=== PATIENT | female | born 1935 | race Hispanic/Latino ===

== ENCOUNTER 2019-01-06 12:58 | Observation (INO) | payer MEDICARE, MEDICAID ==
[2019-01-06 16:11] LABS: BASO % 0.4 % (0.0-2.0); EOS % 1.4 % (0.0-4.0); HEMOGLOBIN 12.7 g/dL (11.0-16.0); LYMPH # 1.2 K/uL (1.0-4.3); LYMPH % 33.8 % (20.0-40.0); MEAN CELL VOLUME 80.1 fL (81.0-99.0); MEAN CORPUSCULAR HEMOGLOBIN 25.9 pg (27.0-31.0); MEAN CORPUSCULAR HGB CONC 32.3 g/dL (33.0-37.0); MEAN PLATELET VOLUME 10.4 fL (7.2-11.7); MONO # 0.4 K/uL (0.0-0.8); MONO % 11.6 % (0.0-10.0); NEUT # 1.8 K/uL (1.8-7.0); NEUT % 52.8 % (50.0-75.0); NRBC % 0.1 % (0.0-2.0); RBC 4.92 Mil/uL (3.80-5.20); RED CELL DISTRIBUTION WIDTH 15.6 % (11.5-14.5); WHITE BLOOD COUNT 3.5 K/uL (4.8-10.8)
--- NOTE | 2019-01-06 16:12 | RAD ---
Date of service: 01/06/2019 HISTORY: Cough COMPARISON: No prior. FINDINGS: LUNGS: The lungs are well inflated. The right lung is clear. There is confluent airspace disease in the left perihilar region and linear atelectasis/scarring in both lower lobes. PLEURA: No pleural effusions or pneumothorax. CARDIOVASCULAR: Mild cardiomegaly. No aortic atherosclerotic calcifications present. OSSEOUS STRUCTURES: Within normal limits for the patient's age. VISUALIZED UPPER ABDOMEN: Normal. OTHER FINDINGS: None. IMPRESSION: Confluent airspace disease in the left perihilar region which may represent pneumonia. Follow-up after medical management is recommended to ensure complete resolution.
[2019-01-06 16:15] LABS: INR 1.1; PROTHROMBIN TIME 11.9 SECONDS (9.7-12.2)
--- NOTE | 2019-01-06 16:18 | C.PDOC ---
History Of Present Illness 83 year old female presents to the ED with family at bedside for evaluation of cold symptoms for one week. Family reports patient has congestion, fever, dry cough and runny nose. They also note that patient started having blood tinged sputum when coughing several days ago. Report patient is on Aspirin and deny any other blood thinners. Patient reports sometimes she feels it is difficult to catch breath but denies chest pain or any other physical complaints. Time Seen by Provider: 01/06/19 14:04 Chief Complaint (Nursing): Cough, Cold, Congestion History Per: Patient History/Exam Limitations: no limitations Onset/Duration Of Symptoms: Days Current Symptoms Are (Timing): Still Present Sick Contacts (Context): None Associated Symptoms: Fever, Cough, Sinus Drainage, Nasal Congestion. denies: Nausea, Vomiting, Diarrhea Past Medical History Reviewed: Historical Data, Nursing Documentation, Vital Signs Vital Signs: Last Vital Signs Temp 100.6 F H 01/06/19 15:20 Pulse 67 01/06/19 15:20 Resp 18 01/06/19 15:20 BP 157/67 H 01/06/19 15:20 Pulse Ox 100 01/06/19 15:20 - Medical History PMH: Arthritis, Cardia Arrhythmia, HTN Other Surgeries: Hx of surgeries Family History: States: No Known Family Hx - Social History Hx Alcohol Use: No Hx Substance Use: No - Immunization History Hx Influenza Vaccination: No Review Of Systems Constitutional: Positive for: Fever ENT: Positive for: Nose Discharge, Nose Congestion Cardiovascular: Negative for: Chest Pain Respiratory: Positive for: Cough, Shortness of Breath, Sputum (blood tinged ) Gastrointestinal: Negative for: Nausea, Vomiting, Abdominal Pain, Diarrhea Neurological: Negative for: Weakness, Numbness, Headache Physical Exam - Physical Exam Appears: Non-toxic, No Acute Distress Skin: Warm, Dry, No Rash Head: Normacephalic Eye(s): bilateral: Normal Inspection Nose: Normal Oral Mucosa: Moist Neck: Supple Chest: Symmetrical Cardiovascular: Rhythm Regular Respiratory: No Rales, No Rhonchi, Wheezing (high pitched expiratory wheezing scattered throughout lungs ) Gastrointestinal/Abdominal: Soft, No Tenderness Extremity: No Pedal Edema Extremity: Bilateral: Atraumatic Neurological/Psych: Oriented x3, Normal Speech ED Course And Treatment - Laboratory Results Result Diagrams: 01/08/19 08:18 01/08/19 08:18 Lab Results: PT 11.9 SECONDS (9.7-12.2) 01/06/19 16:01 INR 1.1 01/06/19 16:01 APTT 36.0 SECONDS (21-34) H 01/06/19 16:01 O2 Sat by Pulse Oximetry: 100 (RA) Pulse Ox Interpretation: Normal - Other Rad CXR X-Ray: Viewed By Me, Read By Radiologist Interpretation: Accession No. : [id number]. Patient Name / ID : ANTHONY GUSMAN / [id number]. Exam Date : 01/06/2019 16:03:28 ( Approved ). Study Comment : Sex / Age : F / [id number]. Creator : Doris Del Castillo MD. Dictator : Doris Del Castillo MD. Amusement Machine Mechanic : Powder Coat Painter : Doris Del Castillo MD. Approver2 : Report Date : 01/06/2019 16:09:19. My Comment : . Date of service: 01/06/2019. HISTORY: Cough. COMPARISON: No prior. FINDINGS: LUNGS: The lungs are well inflated. The right lung is clear. There is confluent airspace disease in the left perihilar region and linear atelectasis/scarring in both lower lobes. PLEURA: No pleural effusions or pneumothorax. CARDIOVASCULAR: Mild cardiomegaly. No aortic atherosclerotic calcifications present. OSSEOUS STRUCTURES: Within normal limits for the patient's age. VISUALIZED UPPER ABDOMEN: Normal. OTHER FINDINGS: None. IMPRESSION: Confluent airspace disease in the left perihilar region which may represent pneumonia. Follow-up after medical management is recommended to ensure complete resolution. Medical Decision Making Medical Decision Making: Plan - EKG - Bloodwork - CXR EKG results 13:40 NSR, 72 bpm, Normal axis, normal intervals, occasional PACs, no ST elevations Results reviewed and discussed with patient and niece. Will admit for likely pneumonia. Rocephin and zithromax ivpb ordered. Blood cultures collected prior to abx administration. Case discussed with Dr. Weston, environmental engineering technician for medicine service, accepts patient for admission. Disposition - Disposition Disposition: HOSPITALIZED Disposition Time: 17:00 Condition: STABLE - Clinical Impression Clinical Impression: Pneumonia, Hemoptysis - Scribe Statement The provider has reviewed the documentation as recorded by the Scribe Nataliya Mckeon All medical record entries made by the Scribe were at my direction and pers onally dictated by me. I have reviewed the chart and agree that the record accurately reflects my personal performance of the history, physical exam, medical decision making, and the department course for this patient. I have also personally directed, reviewed, and agree with the discharge instructions and disposition.
[2019-01-06 16:36] LABS: ALB/GLOB RATIO 1.3 (1.0-2.1); ALBUMIN 3.9 g/dL (3.5-5.0); ALT/SGPT 19 U/L (9-52); AST/SGOT 34 U/L (14-36); BLOOD UREA NITROGEN 22 mg/dL (7-17); CALCIUM 8.8 mg/dl (8.6-10.4); GFR NON-AFRICAN AMERICAN 53
[2019-01-06 17:24] LABS: ABG ALLEN TEST POS; ARTERIAL BLOOD GAS HCO3 25.6 mmol/L (21-28); ARTERIAL BLOOD GAS O2 SAT 94.4 % (95-98); ARTERIAL BLOOD GAS PCO2 37 mm/Hg (35-45); ARTERIAL BLOOD GAS PH 7.44 (7.35-7.45); ARTERIAL BLOOD GAS PO2 59 mm/Hg (80-100); ARTERIAL BLOOD GAS TCO2 26.2 mmol/L (22-28)
--- NOTE | 2019-01-06 19:14 | CP.PCM.CON ---
History of Present Illness - History of Present Illness History of Present Illness: 83 year old female with a PMH of DM type 2, Pulmonary hypertension, arthitis, HTN, and cardia arrhythmia who presented for cold-like symptoms for 1 wk duration. Family reported patient had SOB, congestion, fever, productive cough associated with blood tinged sputum, and running nose. She admits to being recently sick. She denied dysurea, constipation, vomiting, and nausea. ROS: As per HPI PMH: DM type 2, Pulmonary hypertension, arthitis, HTN, and cardia arrhythmia PSH: Abd hernia repair, coronary stent Family: Mother at 88 from pancreatic CA. Social: denies alcohol, illicit drug, and smoking usage. Lives with her . Has a home health aid. CXR 01/06: confluent airspace disease in left perihilar region which my represent pna. A: 83 year old female with a PMH of DM type 2, Pulmonary hypertension, arthitis, HTN, and cardia arrhythmia who presented for cold-like symptoms for 1 wk duration. Patient is being treated for L. PNA. Patient wbc are low, no prior records for comparison. P: continue doneb, pulmicort, solumedrol continue antibiotics; Azithromycin IV and ceftriaxone IV no inhaled steroids F/U blood cultures f/u sputum sample for culture and cytology repeat CBC Past Patient History - Infectious Disease Hx of Infectious Diseases: None - Past Social History Smoking Status: Never Smoked - CARDIAC Hx Cardia Arrhythmia: Yes Hx Hypertension: Yes - PULMONARY Other/Comment: Hx of pulmonary hypertension - ENDOCRINE/METABOLIC Hx Diabetes Mellitus Type 2: Yes - MUSCULOSKELETAL/RHEUMATOLOGICAL Hx Arthritis: Yes - PSYCHIATRIC Hx Substance Use: No - SURGICAL HISTORY Hx Surgeries: Yes Hx Herniorrhaphy: Yes Other/Comment: Hernia repair - ANESTHESIA Hx Anesthesia: Yes Hx Anesthesia Reactions: No Hx Malignant Hyperthermia: No Meds Allergies/Adverse Reactions: Allergies Allergy/AdvReac Type Severity Reaction Status Date / Time No Known Allergies Allergy Verified 01/06/19 13:27 Results - Vital Signs Recent Vital Signs: Last Vital Signs Temp 99.1 F 01/06/19 18:30 Pulse 76 01/06/19 18:30 Resp 20 01/06/19 18:30 BP 168/74 H 01/06/19 18:30 Pulse Ox 94 L 01/06/19 18:30 - Labs Result Diagrams: 01/07/19 06:56 01/07/19 06:56 Labs: Laboratory Results - last 24 hr 01/06/19 01/06/19 01/06/19 16:01 16:01 16:01 WBC 3.5 L RBC 4.92 Hgb 12.7 Hct 39.4 MCV 80.1 L MCH 25.9 L MCHC 32.3 L RDW 15.6 H Plt Count 130 MPV 10.4 Neut % (Auto) 52.8 Lymph % (Auto) 33.8 Cabell % (Auto) 11.6 H Eos % (Auto) 1.4 Baso % (Auto) 0.4 Neut # (Auto) 1.8 Lymph # (Auto) 1.2 Cabell # (Auto) 0.4 Eos # (Auto) 0.0 Baso # (Auto) 0.0 PT 11.9 INR 1.1 APTT 36.0 H Puncture Site pCO2 pO2 HCO3 ABG pH ABG Total CO2 ABG O2 Saturation ABG Base Excess Clemente Test ABG Potassium A-a O2 Difference Respiratory Index Glucose Lactate Liter Flow FiO2 Sodium 131 L Potassium 4.5 Chloride 99 Carbon Dioxide 28 Anion Gap 9 L BUN 22 H Creatinine 1.0 Est GFR ( Amer) > 60 Est GFR (Non-Af Amer) 53 Random Glucose 93 Calcium 8.8 Total Bilirubin 0.3 AST 34 ALT 19 Alkaline Phosphatase 76 Total Protein 6.9 Albumin 3.9 Globulin 3.0 Albumin/Globulin Ratio 1.3 Arterial Blood Potassium 01/06/19 17:20 WBC RBC Hgb Hct MCV MCH MCHC RDW Plt Count MPV Neut % (Auto) Lymph % (Auto) Cabell % (Auto) Eos % (Auto) Baso % (Auto) Neut # (Auto) Lymph # (Auto) Cabell # (Auto) Eos # (Auto) Baso # (Auto) PT INR APTT Puncture Site Rra pCO2 37 pO2 59 L HCO3 25.6 ABG pH 7.44 ABG Total CO2 26.2 ABG O2 Saturation 94.4 L ABG Base Excess 1.1 Clemente Test Pos ABG Potassium 3.8 A-a O2 Difference 94.0 Respiratory Index 1.6 Glucose 100 Lactate 0.6 L Liter Flow 2.0 FiO2 28.0 Sodium 137.0 Potassium Chloride 105.0 Carbon Dioxide Anion Gap BUN Creatinine Est GFR ( Amer) Est GFR (Non-Af Amer) Random Glucose Calcium Total Bilirubin AST ALT Alkaline Phosphatase Total Protein Albumin Globulin Albumin/Globulin Ratio Arterial Blood Potassium 3.8
[2019-01-06] MEDS: MethylPREDNISolone 40 mg Vial IVP SCH (20:29)
[2019-01-06] MEDS: cefTRIAXone IV 1 gm in Dextros 50 ML IVPB SCH (21:05)
[2019-01-06] MEDS: Azithromycin 500mg/250ML NS 500 MG/250 ML BAG IVPB SCH (21:59)
[2019-01-06] MEDS ORDERED: Azithromycin 500mg/250ML NS 500 MG/250 ML BAG IVPB SCH (22:00)
[2019-01-07] MEDS: Albuterol-Ipratrop 3 mg / 0.5 (3 ml) UD INH SCH ×5 (01:45→20:21)
[2019-01-07] MEDS: MethylPREDNISolone 40 mg Vial IVP SCH ×3 (03:18→18:58)
[2019-01-07 07:24] LABS: BASO % 0.4 % (0.0-2.0); EOS % 0.1 % (0.0-4.0); HEMOGLOBIN 13.6 g/dL (11.0-16.0); LYMPH # 0.8 K/uL (1.0-4.3); LYMPH % 30.4 % (20.0-40.0); MEAN CELL VOLUME 80.5 fL (81.0-99.0); MEAN CORPUSCULAR HEMOGLOBIN 26.4 pg (27.0-31.0); MEAN CORPUSCULAR HGB CONC 32.8 g/dL (33.0-37.0); MEAN PLATELET VOLUME 10.7 fL (7.2-11.7); MONO # 0.1 K/uL (0.0-0.8); MONO % 2.7 % (0.0-10.0); NEUT # 1.9 K/uL (1.8-7.0); NEUT % 66.4 % (50.0-75.0); NRBC % 0.1 % (0.0-2.0); RBC 5.14 Mil/uL (3.80-5.20); RED CELL DISTRIBUTION WIDTH 15.3 % (11.5-14.5); WHITE BLOOD COUNT 2.8 K/uL (4.8-10.8)
[2019-01-07] MEDS: Budesonide 0.25 mg/2 ml Inhal Susp UD INH SCH ×2 (07:53→20:22)
[2019-01-07 07:54] LABS: ALB/GLOB RATIO 1.3 (1.0-2.1); ALBUMIN 4.1 g/dL (3.5-5.0); ALT/SGPT 21 U/L (9-52); AST/SGOT 37 U/L (14-36); BLOOD UREA NITROGEN 23 mg/dL (7-17); CALCIUM 8.4 mg/dl (8.6-10.4); GFR NON-AFRICAN AMERICAN > 60
[2019-01-07] MEDS: cefTRIAXone IV 1 gm in Dextros 50 ML IVPB SCH (09:12)
[2019-01-07] MEDS: Metoprolol Succinate 25 mg XL Tab PO SCH (09:12)
[2019-01-07] MEDS: Pantoprazole 20 mg EC Tab PO SCH (09:12)
--- NOTE | 2019-01-07 10:20 | CT ---
Date of service: 01/06/2019 PROCEDURE: CT Chest without contrast HISTORY: Blood in sputum COMPARISON: Chest radiograph performed 01/06/2019. TECHNIQUE: Contiguous axial images were obtained through the chest without intravenous contrast enhancement. Sagittal and coronal reconstructions were performed. Radiation dose: Total exam DLP = 587.39 mGy-cm. This CT exam was performed using one or more of the following dose reduction techniques: Automated exposure control, adjustment of the mA and/or kV according to patient size, and/or use of iterative reconstruction technique. FINDINGS: LUNGS: The lungs are well inflated. There is confluent multifocal airspace disease in the left upper lobe and lingula. There is patchy ground-glass attenuation in the posterior basal segment of the right lower lobe. There is multifocal linear atelectasis in the lung. There is mild scattered centrilobular emphysema in the lungs. MEDIASTINUM: There are coarse calcifications in the coronary arteries. No aortic aneurysm. Normal sized heart. Main pulmonary artery unremarkable. No vascular congestion. There are enlarged mediastinal lymph nodes. Evaluation of hilar lymphadenopathy is not possible in the absence of intravenous contrast There are aortic atherosclerotic calcification. PLEURA: No pleural fluid. No pneumothorax. BONES: No fracture. No destructive lesion. Advanced multilevel degenerative disc disease. UPPER ABDOMEN: Mild thickening of the adrenal glands. No discrete nodule. There is a simple cyst in the upper pole of the left kidney. OTHER FINDINGS: There is a small sliding hiatal hernia. IMPRESSION: 1. Findings are compatible with multifocal pneumonia in the left upper lobe and lingula. Follow-up after medical management is recommended to ensure complete resolution. 2. Patchy ground-glass attenuation in the posterior basal segment of the right lower lobe nonspecific and could represent nonspecific infectious/inflammation. Follow-up after medical management is recommended to ensure complete resolution. 3. Enlarged mediastinal lymph nodes Mage may be reactive, infectious or inflammatory in etiology.
--- NOTE | 2019-01-07 18:05 | CP.PCM.PN ---
Subjective - Date & Time of Evaluation Date of Evaluation: 01/07/19 Time of Evaluation: 11:00 - Subjective Subjective: Patient seen and examined. Still complaining of cough with blood-tinged sputum CAT scan of the chest noted Afebrile Lying comfortably in no distress Objective - Vital Signs/Intake and Output Vital Signs (last 24 hours): Temp Pulse Resp BP Pulse Ox 98.5 F 81 20 139/71 95 01/07/19 16:50 01/07/19 16:50 01/07/19 16:50 01/07/19 16:50 01/07/19 16:50 - Medications Medications: Current Medications Acetaminophen (Tylenol 325mg Tab) 650 mg PO Q6 PRN PRN Reason: Fever >100.4 F Albuterol/Ipratropium (Duoneb 3 Mg/0.5 Mg (3 Ml) Ud) 3 ml INH RQ6 [facility] Last Admin: 01/07/19 13:18 Dose: 3 ml Amlodipine Besylate (Norvasc) 10 mg PO DAILY [facility] Last Admin: 01/07/19 09:12 Dose: 10 mg Budesonide (Pulmicort Respules) 0.25 mg INH Q6H [facility] Last Admin: 01/07/19 07:53 Dose: 0.25 mg Home Med (Macitentan [Opsumit]) 10 mg PO DAILY [facility] Ceftriaxone Sodium (Rocephin Iv 1 Gm Duplex) 50 mls @ 100 mls/hr IVPB DAILY [facility]; Protocol Last Admin: 01/07/19 09:12 Dose: 100 mls/hr Azithromycin (Zithromax 500mg In Ns Addvantage) 500 mg in 250 mls @ 167 mls/hr IVPB Q24H [facility]; Protocol Last Admin: 01/06/19 21:59 Dose: 167 mls/hr Methylprednisolone (Solu-Medrol) 40 mg IVP Q8H [facility] Last Admin: 01/07/19 11:12 Dose: Not Given Metoprolol Succinate (Toprol Xl) 25 mg PO DAILY [facility] Last Admin: 01/07/19 09:12 Dose: 25 mg Pantoprazole Sodium (Protonix Ec Tab) 20 mg PO DAILY [facility] Last Admin: 01/07/19 09:12 Dose: 20 mg Rosuvastatin Calcium (Crestor) 5 mg PO DAILY [facility] Last Admin: 01/07/19 11:00 Dose: 5 mg - Labs Labs: 01/07/19 06:56 01/07/19 06:56 PT 11.9 SECONDS (9.7-12.2) 01/06/19 16:01 INR 1.1 01/06/19 16:01 APTT 36.0 SECONDS (21-34) H 01/06/19 16:01 - Head Exam Head Exam: ATRAUMATIC, NORMOCEPHALIC - ENT Exam ENT Exam: Mucous Membranes Moist - Neck Exam Neck Exam: Normal Inspection - Respiratory Exam Respiratory Exam: Rales - Cardiovascular Exam Cardiovascular Exam: REGULAR RHYTHM - GI/Abdominal Exam GI & Abdominal Exam: Soft Assessment and Plan (1) Multifocal pneumonia Assessment & Plan: Continue antibiotics Follow-up culture and sensitivity Continue nebulizer treatment Case discussed with family at length Status: Acute
--- NOTE | 2019-01-07 19:42 | CARD ---
APPROVED REPORT Date of service: 01/06/2019 EKG Measurement Heart [id number] [id number] <Conclusion> Sinus rhythm with premature atrial complexes Otherwise normal ECG
[2019-01-07] MEDS: Azithromycin 500mg/250ML NS 500 MG/250 ML BAG IVPB SCH (21:19)
[2019-01-08] MEDS: Albuterol-Ipratrop 3 mg / 0.5 (3 ml) UD INH SCH ×2 (01:11→09:20)
[2019-01-08] MEDS: MethylPREDNISolone 40 mg Vial IVP SCH ×3 (02:52→18:40)
--- NOTE | 2019-01-08 08:01 | HP ---
CHIEF COMPLAINT: Coughing, shortness of breath. HISTORY OF PRESENT ILLNESS: Ms. Dayana Mensah is an 83-year-old female with past medical history of diabetes mellitus type 2, pulmonary hypertension, arthritis, hypertension, cardiac arrhythmia cold-like symptoms for one week duration. Family reported the patient had shortness of breath, congestion, fever, productive cough associated with blood-tinged sputum She admits to her of being recently sick. Denies dysuria, constipation, nausea, vomiting. We admitted the patient, called Pulmonary in consult. The patient was seen by Dr. Spencer Crandall. Daughter was sitting on the bedside. PAST MEDICAL HISTORY: Diabetes mellitus type 2, pulmonary hypertension, arthritis, hypertension, cardiac arrhythmia. PAST SURGICAL HISTORY: Abdominal hernia repair, coronary stents. FAMILY HISTORY: Mother at the age of 58 from pancreatic cancer. SOCIAL HISTORY: No alcohol, illicit drugs. No smoking. Lives with her . PHYSICAL EXAMINATION: VITAL SIGNS: Temperature 99.1, pulse 76, respiratory rate 20, blood pressure 168/74. HEENT: Head normocephalic, atraumatic. Eyes: PERRLA. Extraocular movements intact. Conjunctivae clear. Nose patent. Mucous membranes moist. NECK: Supple. No carotid bruit. No JVD or thyromegaly. CHEST: Bilaterally symmetrical. HEART: S1, S2 positive. LUNGS: Clear to auscultation. ABDOMEN: Soft. Bowel sounds present. No organomegaly. EXTREMITIES: No edema. No cyanosis. NEUROLOGICAL: The patient awake, alert. Moving all four extremities. No focal deficit. LABORATORY DATA: White blood cell 2.8, hemoglobin 13.2, hematocrit 41.4, platelets 147. Sodium 132, potassium 4.2, BUN 23, creatinine 0.8, glucose 198. ASSESSMENT AND PLAN: Ms. Dayana Mensah is an 83-year-old lady with leukopenia, low blood urea nitrogen, hyperglycemia. CAT scan of the chest done noted by me. Has multifocal pneumonia. Continue antibiotics. Culture and sensitivity. Continue nebulizer treatment. Case discussed with the family at length of time. Gastrointestinal, deep venous thrombosis prophylaxis. Admitted for pneumonia. CAT scan of the chest repeated. Repeat labs. We will follow up. Mariella Weston MD [facility]
[2019-01-08 08:25] VITALS: TEMP 98
[2019-01-08 08:34] LABS: BASO % 0.2 % (0.0-2.0); HEMOGLOBIN 13.2 g/dL (11.0-16.0); LYMPH # 1.2 K/uL (1.0-4.3); LYMPH % 22.6 % (20.0-40.0); MEAN CELL VOLUME 79.7 fL (81.0-99.0); MEAN CORPUSCULAR HEMOGLOBIN 26.5 pg (27.0-31.0); MEAN CORPUSCULAR HGB CONC 33.2 g/dL (33.0-37.0); MEAN PLATELET VOLUME 10.6 fL (7.2-11.7); MONO # 0.3 K/uL (0.0-0.8); MONO % 4.8 % (0.0-10.0); NEUT # 3.8 K/uL (1.8-7.0); NEUT % 72.4 % (50.0-75.0); NRBC % 0.1 % (0.0-2.0); RED CELL DISTRIBUTION WIDTH 15.6 % (11.5-14.5)
[2019-01-08 08:40] LABS: WHITE BLOOD COUNT 5.2 K/uL (4.8-10.8)
[2019-01-08 08:47] LABS: IRON 23 ug/dL (37-170)
[2019-01-08 08:57] LABS: % IRON SATURATION 9 (20-55); ALB/GLOB RATIO 1.3 (1.0-2.1); ALBUMIN 4.1 g/dL (3.5-5.0); ALT/SGPT 19 U/L (9-52); AST/SGOT 30 U/L (14-36); BLOOD UREA NITROGEN 34 mg/dL (7-17); CALCIUM 8.5 mg/dl (8.6-10.4); GFR NON-AFRICAN AMERICAN 53; TOTAL IRON BINDING CAPACITY 273 ug/dL (250-450)
[2019-01-08] MEDS: Budesonide 0.25 mg/2 ml Inhal Susp UD INH SCH (09:20)
[2019-01-08] MEDS: Metoprolol Succinate 25 mg XL Tab PO SCH (09:47)
[2019-01-08] MEDS: Pantoprazole 20 mg EC Tab PO SCH (09:48)
[2019-01-08] MEDS: cefTRIAXone IV 1 gm in Dextros 50 ML IVPB SCH (09:48)
[2019-01-08 10:01] LABS: FOLATE 10.1 ng/mL
--- NOTE | 2019-01-08 11:39 | CP.PCM.PN ---
Subjective - Date & Time of Evaluation Date of Evaluation: 01/08/19 Time of Evaluation: 09:00 - Subjective Subjective: Patient seen and examined Cough much improved with no further hemoptysis Lying comfortably in no distress Denies shortness of breath, denies fever chills, denies chest pain Objective - Vital Signs/Intake and Output Vital Signs (last 24 hours): Temp Pulse Resp BP Pulse Ox 98 F 77 20 112/59 L 94 L 01/08/19 07:00 01/08/19 09:38 01/08/19 07:00 01/08/19 09:38 01/08/19 07:10 - Medications Medications: Current Medications Acetaminophen (Tylenol 325mg Tab) 650 mg PO Q6 PRN PRN Reason: Fever >100.4 F Albuterol/Ipratropium (Duoneb 3 Mg/0.5 Mg (3 Ml) Ud) 3 ml INH RQ6 [facility] Last Admin: 01/08/19 09:20 Dose: 3 ml Amlodipine Besylate (Norvasc) 10 mg PO DAILY [facility] Last Admin: 01/08/19 09:48 Dose: 10 mg Budesonide (Pulmicort Respules) 0.25 mg INH Q6H [facility] Last Admin: 01/08/19 09:20 Dose: 0.25 mg Home Med (Macitentan [Opsumit]) 10 mg PO DAILY [facility] Ceftriaxone Sodium (Rocephin Iv 1 Gm Duplex) 50 mls @ 100 mls/hr IVPB DAILY [facility]; Protocol Last Admin: 01/08/19 09:48 Dose: 100 mls/hr Azithromycin (Zithromax 500mg In Ns Addvantage) 500 mg in 250 mls @ 167 mls/hr IVPB Q24H [facility]; Protocol Last Admin: 01/07/19 21:19 Dose: 167 mls/hr Methylprednisolone (Solu-Medrol) 40 mg IVP Q8H [facility] Last Admin: 01/08/19 02:52 Dose: 40 mg Metoprolol Succinate (Toprol Xl) 25 mg PO DAILY [facility] Last Admin: 01/08/19 09:47 Dose: 25 mg Pantoprazole Sodium (Protonix Ec Tab) 20 mg PO DAILY [facility] Last Admin: 01/08/19 09:48 Dose: 20 mg Rosuvastatin Calcium (Crestor) 5 mg PO DAILY [facility] Last Admin: 01/08/19 09:47 Dose: 5 mg - Labs Labs: 01/08/19 08:18 01/08/19 08:18 PT 11.9 SECONDS (9.7-12.2) 01/06/19 16:01 INR 1.1 01/06/19 16:01 APTT 36.0 SECONDS (21-34) H 01/06/19 16:01 - Head Exam Head Exam: ATRAUMATIC, NORMOCEPHALIC - ENT Exam ENT Exam: Mucous Membranes Moist - Neck Exam Neck Exam: Normal Inspection - Respiratory Exam Respiratory Exam: Clear to Ausculation Bilateral - Cardiovascular Exam Cardiovascular Exam: REGULAR RHYTHM - GI/Abdominal Exam GI & Abdominal Exam: Soft, Normal Bowel Sounds - Extremities Exam Extremities Exam: Normal Inspection - Neurological Exam Neurological Exam: Alert, Oriented x3 Assessment and Plan (1) Multifocal pneumonia Assessment & Plan: Clinically much improved No further hemoptysis Switch to p.o. antibiotics Follow-up in the office Status: Acute
--- NOTE | 2019-01-08 11:46 | RAD ---
Date of service: 01/08/2019 HISTORY: R/O PNA COMPARISON: 01/06/2019 TECHNIQUE: 1 view obtained. FINDINGS: LUNGS: There is persistent opacity at the left base. This may reflect pneumonia. Follow-up advised. No other abnormal opacity is seen elsewhere. PLEURA: No significant pleural effusion identified, no pneumothorax apparent. CARDIOVASCULAR: No aortic atherosclerotic calcification present. Normal cardiac size. No pulmonary vascular congestion. OSSEOUS STRUCTURES: No significant abnormalities. VISUALIZED UPPER ABDOMEN: Normal. OTHER FINDINGS: None. IMPRESSION: Questionable left basilar infiltrate. Follow-up advised.
[2019-01-08 16:19] VITALS: BP 129/64; PULSE 20; RESP 95
--- NOTE | 2019-01-08 16:53 | CP.PCM.PN ---
Subjective - Date & Time of Evaluation Date of Evaluation: 01/08/19 Time of Evaluation: 16:53 - Subjective Subjective: pt alert and oriented x 3 with no signs and symptoms of shortness of breath. Objective - Vital Signs/Intake and Output Vital Signs (last 24 hours): Temp Pulse Resp BP Pulse Ox 98 F 20 L 95 H 129/64 94 L 01/08/19 16:00 01/08/19 16:00 01/08/19 16:00 01/08/19 16:00 01/08/19 16:00 - Medications Medications: Current Medications Acetaminophen (Tylenol 325mg Tab) 650 mg PO Q6 PRN PRN Reason: Fever >100.4 F Albuterol/Ipratropium (Duoneb 3 Mg/0.5 Mg (3 Ml) Ud) 3 ml INH RQ6 [facility] Last Admin: 01/08/19 09:20 Dose: 3 ml Amlodipine Besylate (Norvasc) 10 mg PO DAILY [facility] Last Admin: 01/08/19 09:48 Dose: 10 mg Budesonide (Pulmicort Respules) 0.25 mg INH Q6H [facility] Last Admin: 01/08/19 09:20 Dose: 0.25 mg Home Med (Patient's Own Medication) 1 tab PO DAILY [facility] Ceftriaxone Sodium (Rocephin Iv 1 Gm Duplex) 50 mls @ 100 mls/hr IVPB DAILY [facility]; Protocol Last Admin: 01/08/19 09:48 Dose: 100 mls/hr Azithromycin (Zithromax 500mg In Ns Addvantage) 500 mg in 250 mls @ 167 mls/hr IVPB Q24H [facility]; Protocol Methylprednisolone (Solu-Medrol) 40 mg IVP Q8H [facility] Last Admin: 01/08/19 12:30 Dose: 40 mg Metoprolol Succinate (Toprol Xl) 25 mg PO DAILY [facility] Last Admin: 01/08/19 09:47 Dose: 25 mg Pantoprazole Sodium (Protonix Ec Tab) 20 mg PO DAILY [facility] Last Admin: 01/08/19 09:48 Dose: 20 mg Rosuvastatin Calcium (Crestor) 5 mg PO DAILY [facility] Last Admin: 01/08/19 09:47 Dose: 5 mg - Labs Labs: 01/08/19 08:18 01/08/19 08:18 PT 11.9 SECONDS (9.7-12.2) 01/06/19 16:01 INR 1.1 01/06/19 16:01 APTT 36.0 SECONDS (21-34) H 01/06/19 16:01 Assessment and Plan - Assessment and Plan (Free Text) Plan: 83 year old female who presented to the ER with cold like symptoms. Pt was complaining of fever, cough, and a runny nose. Pt was treated for Pneumonia. Pt seen and examined. VSS. Pt has no complaints at this time. Explained to patient discharge instructions. Discharge discussed with Dr. Weston. Follow up with Dr. Weston in 1 week. Please resume all home medications Start Azithromycin 500mg daily x 5days, medro dose pack , breo/ 200/ 25 1 puff bid , proair 2 puff qtid. RX printed.
[2019-01-08 17:50] VITALS: O2SAT 100
[2019-01-08] MEDS ORDERED: Azithromycin 500mg/250ML NS 500 MG/250 ML BAG IVPB SCH (21:00)
[2019-01-09] MEDS ORDERED: OPSUMIT 10 MG TABLET PO SCH (10:00)
== END 2019-01-08 19:23 | disposition home or self-care (01) ==
LOC: C.ER 12:58 → C.9E 17:03 → C.5S 18:00
PROVIDERS: ADMIT Internal Medicine; ATTEND Internal Medicine
DX: J18.9 Pneumonia, unspecified organism (principal); E11.65 Type 2 diabetes mellitus with hyperglycemia; I10 Essential (primary) hypertension; I27.20 Pulmonary hypertension, unspecified; M19.90 Unspecified osteoarthritis, unspecified site; Z95.5 Presence of coronary angioplasty implant and graft
CPT/HCPCS: 36415; 71045; 71250; 80053; 80061; 82607; 82746; 82803; 83036; 83540; 83550; 83880; 85025; 85610; 85730; 87040; 87070; 93005; 94640; 94760; 96365; 96366; 96367; 96375; 96376; 97110; 97116; 97162; 99285; G0378; G8978; G8979; J0456; J0696; J2920